=== PATIENT | female | born 1975 | race American Indian/Alaskan Native ===

== ENCOUNTER 2016-07-13 09:15 | Outpatient (CLI) | payer OTHER ==
--- NOTE | 2016-07-13 10:44 | Mammography Report ---
Screening mammogram: Baseline exam. Routine views demonstrates an intermediate density fibroglandular pattern with symmetric distribution. No focal mass and no distortion. A few scattered benign-appearing calcifications identified in the right breast. In the left breast there are numerous microcalcifications in the retroareolar region which may be associated with an ill-defined area of hazy increased parenchymal density. The findings are not otherwise remarkable. CAD used: Impression: Indeterminate left breast calcifications with parenchymal asymmetry. Recommendation: 1. Left breast magnification views. 2. Left breast ultrasound. BI-RADS CATEGORY: 0 = Needs additional imaging evaluation ACR BI-RADS MAMMOGRAPHIC CODES: 0 = Needs additional imaging evaluation; 1 = Negative; 2 = Benign; 3 = Probably benign; 4 = Suspicious; 5 = Malignant; 6 = Known biopsy-proven malignancy COMMENT: 1. Dense breast tissue, i.e., adenosis, fibrocystic changes, etc., may obscure an underlying neoplasm. 2. Approximately 10% of cancers are not detected with mammography. 3. A negative mammography report should not delay biopsy if a clinically suspicious mass is present.
== END 2016-07-13 09:16 | disposition home or self-care (01) ==
LOC: MAMMO 09:15
PROVIDERS: ATTEND Obstetrics & Gynecology Gynecology
DX: Z12.31 Encounter for screening mammogram for malignant neoplasm of breast (principal)
CPT/HCPCS: 77067; G0202

== ENCOUNTER 2016-07-20 08:55 | Outpatient (CLI) | payer OTHER ==
--- NOTE | 2016-07-20 10:41 | Mammography Report ---
Left mammogram/bilateral breast ultrasound: Based on recent screening examination magnification CC and lateral images of the left retroareolar region is performed. There is a ill-defined area of increased retroareolar tissue density with no definable mass nor architectural distortion. Within this density there are slightly pleomorphic slightly clustered calcifications. In the lateral projection the calcifications appear to be into two separate locations on being posterior to the nipple and the other slightly above the nipple. Ultrasound in both left and right retroareolar regions shows no echogenic abnormality. Impression: Indeterminate calcifications. Recommendation: Stereotactic biopsy of either grouping of pleomorphic calcifications. The findings and recommendations have been discussed with the patient. BI-RADS CATEGORY: 4 = Suspicious ACR BI-RADS MAMMOGRAPHIC CODES: 0 = Needs additional imaging evaluation; 1 = Negative; 2 = Benign; 3 = Probably benign; 4 = Suspicious; 5 = Malignant; 6 = Known biopsy-proven malignancy COMMENT: 1. Dense breast tissue, i.e., adenosis, fibrocystic changes, etc., may obscure an underlying neoplasm. 2. Approximately 10% of cancers are not detected with mammography. 3. A negative mammography report should not delay biopsy if a clinically suspicious mass is present.
== END 2016-07-20 08:56 | disposition home or self-care (01) ==
LOC: MAMMO 08:55
PROVIDERS: ATTEND Obstetrics & Gynecology Gynecology
DX: R92.1 Mammographic calcification found on diagnostic imaging of breast (principal)
CPT/HCPCS: 76642; G0206

== ENCOUNTER 2016-08-09 14:35 | Outpatient (CLI) | payer OTHER ==
--- NOTE | 2016-08-10 09:24 | Mammography Report ---
STEREOTACTIC VACUUM ASSISTED BIOPSY WITH CLIP PLACEMENT LEFT BREAST: 08/09/16 14:35:00 CLINICAL: Calcifications. COMPARISON:07/20/16 FINDINGS: Consent for the procedure was obtained. The more lateral and superior group of calcifications was targeted with stereotactic guidance. The skin was prepped with Betadine and anesthetized with 1% lidocaine. 2% lidocaine with epinephrine was injected for deeper anesthesia. 8 gauge Mammotome biopsy was performed from a approach through a small dermatotomy. Prefire and post-fire images demonstrated satisfactory positioning of the probe. Samples were obtained around the clock face. A specimen radiograph revealed a few questionable tiny calcifications. A clip was placed at the biopsy site and the placement was confirmed with a radiograph. The probe was removed and hemostasis was achieved with mild pressure. A sterile dressing was applied. The patient tolerated the procedure well and there were no apparent complications. Two view mammogram demonstrated slight discordant position of the biopsy clip with clip approximately 1.5 cm more lateral and superior than expected. IMPRESSION: Uncomplicated stereotactic biopsy with clip placement left breast.
--- NOTE | 2016-08-10 09:25 | Mammography Report ---
LEFT DIGITAL DIAGNOSTIC MAMMOGRAM: 08/09/16 14:35:00 CLINICAL: For clip placement immediately status post stereotactic biopsy. COMPARISON:07/20/16 FINDINGS: A biopsy clip is now identified in the upper outer quadrant. The clip is approximately 12 mm more superior than the targeted calcifications. IMPRESSION: Slight discordance in clip position status post ultrasound biopsy. BI-RADS CATEGORY: 4--Suspicious Pathology pending.
== END 2016-08-09 14:36 | disposition home or self-care (01) ==
LOC: SPVWC 14:35
PROVIDERS: ATTEND Obstetrics & Gynecology Gynecology
DX: R92.1 Mammographic calcification found on diagnostic imaging of breast (principal)
CPT/HCPCS: 19081; 88305; A4648; G0206